=== PATIENT | male | born 1980 ===

== ENCOUNTER → 2022-03-18 | Outpatient (CLI) | payer BC ==
[2022-03-19 13:45] LABS: Stool Occult Bld Immuno 1 Positive (NEGATIVE)
== END | disposition home or self-care (01) ==
LOC: LAB SHORT 10:48 → LAB 10:48
PROVIDERS: Family Medicine
DX: Z12.11 Encounter for screening for malignant neoplasm of colon (principal)
CPT/HCPCS: G0328

== ENCOUNTER 2022-04-19 09:54 | Day surgery (SDC) | payer BC ==
[~2022-04-19] VITALS: Ht 182.9 cm; Wt 92.7 kg
[2022-04-19] MEDS ORDERED: FERSU300 (10:30)
[2022-04-19] MEDS ORDERED: MULVITA (10:30)
== END 2022-04-19 12:45 | disposition home or self-care (01) ==
LOC: ORSCSDS 09:54
PROVIDERS: Surgery
PROC: 0DB78ZX Excision of Stomach, Pylorus, Via Natural or Artificial Opening Endoscopic, Diagnostic (ICD-10-PCS; principal; 2022-04-19 11:15)
PROC: 0DB48ZX Excision of Esophagogastric Junction, Via Natural or Artificial Opening Endoscopic, Diagnostic (ICD-10-PCS; principal; 2022-04-19 11:15)
PROC: 0DB58ZX Excision of Esophagus, Via Natural or Artificial Opening Endoscopic, Diagnostic (ICD-10-PCS; principal; 2022-04-19 11:15)
PROC: 0DJD8ZZ Inspection of Lower Intestinal Tract, Via Natural or Artificial Opening Endoscopic (ICD-10-PCS; principal; 2022-04-19 11:15)
DX: K92.1 Melena (principal); K21.9 Gastro-esophageal reflux disease without esophagitis; R13.19 Other dysphagia; K64.4 Residual hemorrhoidal skin tags; K44.9 Diaphragmatic hernia without obstruction or gangrene; K57.30 Diverticulosis of large intestine without perforation or abscess without bleeding; K64.8 Other hemorrhoids; Z86.16 Personal history of COVID-19
CPT/HCPCS: 88305; 88342; J2704; J7120